=== PATIENT | female | born 1985 | race Two or more races ===

== ENCOUNTER 2025-01-28 05:41 | Emergency (ER) | payer SELFPAY ==
[~2025-01-28] VITALS: Ht 157.5 cm; Wt 59.0 kg
[2025-01-28] MEDS ORDERED: PROCHLORPERAZINE EDISYLATE 10 MG/2 ML VIAL ONE (06:41)
[2025-01-28] MEDS ORDERED: dexaMETHasone SOD PHOSPHATE 1 ML ONE (06:41)
[2025-01-28] MEDS ORDERED: KETOROLAC TROMETHAMINE INJ 30 MG/ML VIAL ONE (06:41)
[2025-01-28] MEDS: PROCHLORPERAZINE EDISYLATE 10 MG/2 ML VIAL IVP ONE (06:55)
[2025-01-28] MEDS: KETOROLAC TROMETHAMINE INJ 30 MG/ML VIAL IV ONE (06:55)
[2025-01-28] MEDS: IV NS 0.9% 1,000 ML BAG IV ONE (06:55)
[2025-01-28] MEDS: dexaMETHasone SOD PHOSPHATE 10 MG/ML VIAL IV ONE (06:55)
[2025-01-28] MEDS ORDERED: PROC-11 PO (09:11)
[2025-01-28] MEDS ORDERED: DEXA4TAB68 PO (09:11)
[2025-01-28] MEDS ORDERED: KETO10TA2 PO (09:11)
[2025-01-28 09:14] VITALS: BP 139/94; TEMP 98; O2SAT 98
== END 2025-01-28 09:15 | disposition home or self-care (01) ==
LOC: ER 05:48
DX: R51.9 Headache, unspecified (principal); H92.02 Otalgia, left ear; R11.0 Nausea; R42 Dizziness and giddiness; Z20.822 Contact with and (suspected) exposure to COVID-19
CPT/HCPCS: 99285; 96374; 70450; 96375; 96361; 87426; 87804 ×2; J1885; J0780; J1100; J7030